=== PATIENT | male | born 1960 | race Caucasian/White ===

== ENCOUNTER 2016-11-03 02:24 | Emergency (ER) | payer MEDICAID ==
[~2016-11-03] VITALS: Ht 172.7 cm; Wt 68.0 kg
--- NOTE | 2016-11-03 02:55 | NUR ---
TO BED 4 AMBULATORY C/O TOOTHACHE X2 DAYS. PENDING ER MD HEBERT.
--- NOTE | 2016-11-03 04:15 | NUR ---
STARTED SL 18G TO [facility], BLOOD DRAWN AND SENT TO LAB.
[2016-11-03 04:39] LABS: BASOPHILS % (AUTO) 0.2 % (0.0-2.0); EOSINOPHILS # (AUTO) 0.2 /CMM (0.0-0.7); EOSINOPHILS % (AUTO) 1.5 % (0.0-6.0); HEMATOCRIT 40 % (39-51); HEMOGLOBIN 13.2 g/dL (13.5-17.5); LYMPHOCYTES # (AUTO) 1.6 /CMM (0.8-4.8); LYMPHOCYTES % (AUTO) 15.3 % (20.0-44.0); MEAN CORPUSCULAR HEMOGLOBIN 32 PG (26.0-33.0); MEAN CORPUSCULAR HGB CONC 33 g/dl (31.0-36.0); MEAN CORPUSCULAR VOLUME 94 fL (80-96); MONOCYTES # (AUTO) 1.1 /CMM (0.1-1.30); MONOCYTES % (AUTO) 10.9 % (2.0-12.0); NEUTROPHILS # (AUTO) 7.6 /CMM (1.8-8.9); NEUTROPHILS % (AUTO) 72.1 % (43.0-81.0); PLATELET COUNT (AUTO) 266 /CMM (150-450); RDW COEFFICIENT OF VARIATION 14.6 (11.5-15.0); WHITE BLOOD COUNT (AUTO) 10.5 K/uL (4.3-11.0)
[2016-11-03 04:47] LABS: CALCIUM, SERUM 8.5 mg/dL (8.5-10.1); CREATININE 0.8 mg/dL (0.6-1.3)
[2016-11-03 05:16] LABS: INR 0.95 (0.87-1.13); PROTHROMBIN TIME 10.1 SECS (9.5-12.7)
[2016-11-03] MEDS ORDERED: IV NS 0.9% 250 ML IV ONE (05:31)
[2016-11-03] MEDS ORDERED: IOHEXOL-300 100 ML VIAL IV ONE (05:31)
--- NOTE | 2016-11-03 05:34 | NUR ---
PT TRANSPORTED TO RADIOLOGY FOR CT FACIAL.
--- NOTE | 2016-11-03 05:56 | NUR ---
PT BACK FROM RADIOLOGY. PENDING CT FACIAL RESULT.
[2016-11-03] MEDS ORDERED: CLINDAMYCIN 900 MG/6 ML VIAL ONE (06:16)
[2016-11-03] MEDS ORDERED: CLINDAMYCIN 900 MG in IV D5W 100 ML IV ONE (06:30)
--- NOTE | 2016-11-03 06:52 | NUR ---
PT SITTING UP IN BED, NO ACUTE DISTRESS NOTED, RESP EVEN AND UNLABORED. CALL [facility]. PENDING CT FACIAL RESULT.
--- NOTE | 2016-11-03 06:58 | NUR ---
REPORT GIVEN TO AM SHIFT JORDAN RIVERO.
--- NOTE | 2016-11-03 07:23 | NUR ---
PAGED DR LEDESMA/DR DAMON FOR DR RAI
[2016-11-03 08:02] VITALS: BP 130/70
--- NOTE | 2016-11-03 08:05 | NUR ---
Patient discharged to home in stable condition. Written and verbal after care instructions given. Patient verbalizes understanding of instruction.
--- NOTE | 2016-11-03 08:05 | NUR ---
IV removed. Catheter intact and site benign. Pressure and 4x4 applied to site. No bleeding noted.
== END 2016-11-03 08:05 | disposition home or self-care (01) ==
LOC: ER 02:24
DX: K04.7 Periapical abscess without sinus (principal)
CPT/HCPCS: 36415; 70487; 80048; 85025; 85730; 96365; 99285; A4606; J3490 ×2; J7050; J7060 ×2; Q9967; Z7610

== ENCOUNTER 2018-12-13 09:37 | Emergency (ER) | payer MEDICAID ==
[~2018-12-13] VITALS: Ht 165.1 cm; Wt 63.5 kg
[2018-12-13] MEDS ORDERED: IBUPROFEN 600 MG TABLET PO ONE ×2 (10:30→10:33)
[2018-12-13] MEDS ORDERED: ACETAMINOPHEN ES 500 MG TABLET PO ONE (10:30)
[2018-12-13] MEDS ORDERED: ACETAMINOPHEN ES 500 MG TABLET ONE (10:32)
--- NOTE | 2018-12-13 10:42 | NUR ---
PT TAKEN BY [employer] FOR CT
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
--- NOTE | 2018-12-13 10:56 | NUR ---
PT RETURNED FROM CT
[2018-12-13 14:04] VITALS: BP 118/77
== END 2018-12-13 14:10 | disposition home or self-care (01) ==
LOC: ER 09:39
DX: S02.2XXA Fracture of nasal bones, initial encounter for closed fracture (principal); S00.81XA Abrasion of other part of head, initial encounter; S43.101A Unspecified dislocation of right acromioclavicular joint, initial encounter; V98.8XXA Other specified transport accidents, initial encounter; Y93.55 Activity, bike riding; Y92.480 Sidewalk as the place of occurrence of the external cause; Y99.8 Other external cause status
CPT/HCPCS: 70450-TC; 71045-TC; 72125-TC; 73030-TC